=== PATIENT | female | born 1960 | race Caucasian/White ===

== ENCOUNTER 2017-04-04 16:28 | Inpatient (IN) | payer OTHER ==
[~2017-04-04] VITALS: Ht 162.6 cm; Wt 73.5 kg
[2017-04-05] MEDS ORDERED: MAG HYDROX/AL HYDROX/SIMETH 30 ML LIQUID UDC PO PRN (13:45)
[2017-04-05] MEDS ORDERED: ONDANSETRON 4 MG/2 ML VIAL IM PRN (13:45)
[2017-04-05] MEDS ORDERED: LORAZEPAM 2 MG/1 ML VIAL IM PRN (13:45)
[2017-04-05] MEDS ORDERED: LOPERAMIDE HCL 2 MG CAPSULE PO PRN ×2 (13:45)
[2017-04-05] MEDS ORDERED: ONDANSETRON ODT 4 MG TAB.RAPDIS SL PRN (13:45)
[2017-04-05] MEDS ORDERED: LORAZEPAM 1 MG TABLET PO PRN ×2 (13:45)
[2017-04-05] MEDS ORDERED: MIRALAX 17 GM POWD.PACK PO PRN (13:45)
[2017-04-05] MEDS ORDERED: diphenhydrAMINE 50 MG CAPSULE PO PRN (13:45)
[2017-04-05] MEDS ORDERED: ACETAMINOPHEN 325 MG TABLET PO PRN (13:45)
[2017-04-05] MEDS ORDERED: CLONIDINE HCL 0.1 MG TABLET PO PRN (13:45)
--- NOTE | 2017-04-05 14:15 | NUR ---
PRE-ADMISSION NOTE: 56 [facility]. Pt is alert and oriented X4. Color good, skin warm and dry. Respirations even and unlabored. Pt has allergy to PCN. Hx of A-FIB Denies PCP Vital Signs: B/P: 139/90 HR: 110 RR: 18 Pulse OX: 96% T: 98.2 Pt is 5 feet 4inches tall and weighs 165 pounds. Substance use: 2-3 bottles of wine per day X 25 years. Last drink last night and states "I drank too much"
[2017-04-05] MEDS ORDERED: THIAMINE HCL 200 MG/2 ML VIAL IM ONE (14:20)
[2017-04-05 14:23] VITALS: BP 139/90
[2017-04-05 14:40] LABS: *URINE HCG, QUAL NEGATIVE (NEGATIVE)
--- NOTE | 2017-04-05 14:45 | NUR ---
ADMISSION NOTE: 56 yo female presents to [facility] for supervised withdrawal from ETOH. Pt is alert and oriented X4. Color good, skin warm and dry. Respirations even and unlabored. Pt has allergy to PCN. Hx of A-FIB, anxiety and depression. Pt states was hospitalized in 2009 for her A-Fib. Denies PCP or Psychiatrist. Denies seizure history. Pt is 5 feet 4 inches tall and weighs 162 pounds. Skin intact. Initial CIWA 11. Pt noted with upper extremity tremors, crying and anxiety. Pt started on a 5 day Ativan taper by Dr. Higuera. Pt states has been to 2 other treatment facilities. One in 1995 and stayed sober for 1 year and the other March 2017 for 5 days and stayed sober for 1 week. Pt brought home medications. All reconciled and taken to pharmacy. Vital Signs: B/P: 139/90 HR: 110 RR: 18 Pulse OX: 96% T: 98.2 Substance use: 2-3 bottles of wine per day X 25 years Last drink 8-1-17 "way too much."
[2017-04-05 14:48] LABS: *AMPHETAMINE, URINE NEGATIVE (NEGATIVE); *BARBITURATE, URINE NEGATIVE (NEGATIVE); *CANNABINOID, URINE NEGATIVE (NEGATIVE); *COCCAINE, URINE NEGATIVE (NEGATIVE); *OPIATE, URINE NEGATIVE (NEGATIVE); *PHENCYCLIDINE SCREEN,URINE NEGATIVE (NEGATIVE)
[2017-04-05] MEDS: LORAZEPAM 1 MG TABLET PO SCH ×2 (14:53→20:39)
[2017-04-05] MEDS ORDERED: DILT120C51 PO (14:57)
[2017-04-05] MEDS ORDERED: FLUO40CA49 PO (14:58)
[2017-04-05] MEDS ORDERED: TRAZ-147 PO (14:59)
[2017-04-05] MEDS ORDERED: ASPI-605 PO (15:01)
[2017-04-05] MEDS ORDERED: DOXY40CP2 PO (15:10)
[2017-04-05] MEDS ORDERED: IBUP200C5 PO (15:12)
[2017-04-05] MEDS ORDERED: CALC-1008 PO (15:12)
[2017-04-05] MEDS ORDERED: ASCO-420 PO (15:13)
[2017-04-05] MEDS ORDERED: [UNRECOGNIZED DRUG - CODE] PO (15:16)
[2017-04-05] MEDS: FLUOXETINE HCL 20 MG CAPSULE PO SCH (16:14)
--- NOTE | 2017-04-05 16:40 | NUR ---
Pt states feels much improved after 2mg Ativan per taper.
[2017-04-05 17:01] VITALS: BP 135/89
[2017-04-05] MEDS: IBUPROFEN 400 MG TABLET PO PRN (17:51)
--- NOTE | 2017-04-05 17:54 | NUR ---
Pt noted to have CIWA 17. Ativan 2mg po prn given. Dr. Higuera notified. Also, c/o headache. Motrin 400mg po prn given.
--- NOTE | 2017-04-05 18:34 | NUR ---
Pt states feels improved after Ativan 2mg po prn. CIWA 8. Also states headache improved after Motrin prn.
--- NOTE | 2017-04-05 18:38 | NUR ---
END OF SHIFT NOTE: Report given to shift mgr nurse. 56 [facility]. Pt started on a 5 day Ativan taper. Pt is alert and oriented X4. Color good, skin warm and dry. Respirations even and unlabored. VSS. Pt has allergy to PCN. Hx of A-FIB, anxiety and depression. Last CIWA 17 @ 1750. Ativan 2mg po prn given. Dr. Higuera notified. Also, c/o headache. Motrin 400mg po prn given. Safety precautions observed. Call light within reach.
[2017-04-05 20:00] VITALS: BP 145/97
--- NOTE | 2017-04-05 20:00 | NUR ---
Start of Shift Pt is a 56 year old female admitted for ETOH dependence, placed on 5 day Ativan taper. Pt reported consuming 2-3 bottles of wine. PMH: A-fib, anxiety and depression. Pt reports allergies to PCN, fall/seizure precautions, regular diet and full code. Upon assessment, pt presents with anxiety, is in emotional distress, tremors visible, reports chills/aches throughout body, skin flushed/clammy, respirations even/unlabored, denies SOB/chest pain, medications due. Safety measures in place, call light within reach, side rails up x2, bed locked and low position. Will continue to monitor.
[2017-04-05 20:30] LABS: BASOPHILS # (AUTO) 0.1 K/uL (0.0-8.0); BASOPHILS % (AUTO) 0.7 % (0.0-2.0); EOSINOPHILS # (AUTO) 0.5 K/uL (0.0-0.7); EOSINOPHILS % (AUTO) 5.9 % (0.0-7.0); HEMATOCRIT 46.1 % (37-47); HEMOGLOBIN 15.4 G/DL (12.0-16.0); LYMPHOCYTES # (AUTO) 2.4 K/UL (0.8-4.8); LYMPHOCYTES % (AUTO) 29.8 % (20.5-51.5); MEAN CORPUSCULAR HEMOGLOBIN 32.2 UUG (27.0-31.0); MEAN CORPUSCULAR HGB CONC 34 g/dL (32.0-37.0); MEAN CORPUSCULAR VOLUME 96.1 FL (81.0-99.0); MONOCYTES % (AUTO) 12.3 % (0.0-11.0); NEUTROPHILS # (AUTO) 4.2 K/UL (1.8-8.9); NEUTROPHILS % (AUTO) 51.3 % (38.5-71.5); PLATELET COUNT (AUTO) 305 K/UL (150-450); RED BLOOD CELL COUNT(AUTO) 4.79 MIL/UL (4.2-5.4); WHITE BLOOD COUNT (AUTO) 8.2 K/UL (4.0-11.2)
[2017-04-05 20:36] LABS: ALANINE AMINOTRANSFERASE 42 U/L (14-59); ALKALINE PHOSPHATASE 59 U/L (50-136); AMYLASE 47 U/L (25-115); ASPARTATE AMINOTRANSFERASE 32 U/L (15-37); BILIRUBIN,TOTAL 0.7 mg/dL (0.2-1.0); CARBON DIOXIDE 33 mmol/L (21-32); CHLORIDE 101 mmol/L (98-107); CREATININE 0.9 mg/dL (0.6-1.3); GLUCOSE 108 mg/dL (74-106); LIPASE 183 U/L (73-393); MAGNESIUM 1.9 mg/dL (1.8-2.4); POTASSIUM 3.3 mmol/L (3.5-5.1); TOTAL PROTEIN, SERUM 6.7 g/dL (6.4-8.2); UREA NITROGEN, BLOOD 13 mg/dL (7-18)
[2017-04-05] MEDS: GABAPENTIN 300 MG CAPSULE PO SCH (20:39)
[2017-04-05] MEDS: TRAZODONE 100 MG TABLET PO SCH (20:39)
[2017-04-05 20:41] LABS: ETHANOL < 3 MG/DL (0-0)
[2017-04-05] MEDS ORDERED: POTASSIUM CHLORIDE 20 MEQ TAB.PRT.SR PO ONE (21:15)
--- NOTE | 2017-04-05 21:15 | NUR ---
Potassium Supplemented K 3.3 supplemented with K-Dur 40 MEQ. Safety measures in place. Will continue to monitor.
[2017-04-05] MEDS ORDERED: POTASSIUM CHLORIDE 20 MEQ TAB.PRT.SR ONE (21:37)
[2017-04-06] VITALS: BP 108/72
[2017-04-06 04:00] VITALS: BP 143/87
--- NOTE | 2017-04-06 04:00 | NUR ---
Vital Signs BP 143/87, pulse 67, resp 16, SpO2 97% room air, temp 98, no reports of pain CIWA deferred due to pt sleeping, to assess while pt is awake as ordered. Safety measures in place. Will continue to monitor
--- NOTE | 2017-04-06 07:00 | NUR ---
End of Shift Pt is a 56 year old female admitted for ETOH dependence, placed on 5 day Ativan taper. Pt reported consuming 2-3 bottles of wine. PMH: A-fib, anxiety and depression. Pt reports allergies to PCN, fall/seizure precautions, regular diet and full code. During shift, pt presented with anxiety, was in emotional distress, tremors visible, reports chills/aches throughout body, skin flushed/clammy scheduled taper medications administered, CIWA 9. K 3.3 supplement with K-Dur 40 MEQ. No other PRN medications administered. Pt slept for 10 hours, intake of 1180 ml PO, voids x3 and stool x0. Safety measures in place, call light within reach, side rails up x2, bed locked and low position. Endorsed to day shift nurse.
--- NOTE | 2017-04-06 07:25 | NUR ---
START OF SHIFT NOTE: Received report from date night caregiver nurse. Pt is a 56 year old female admitted 03-05-17 for ETOH dependence, placed on 5 day Ativan taper. Tolerating well. Pt is alert and oriented X4. Color good, skin warm and dry. Respirations even and unlabored. Resting in bed. Safety precautions observed. Call light within reach. Will continue to monitor.
[2017-04-06] MEDS: ASPIRIN 81 MG TAB.CHEW PO SCH (08:05)
[2017-04-06] MEDS: THIAMINE HCL 100 MG TABLET PO SCH (08:05)
[2017-04-06] MEDS: GABAPENTIN 300 MG CAPSULE PO SCH ×2 (08:05→20:33)
[2017-04-06] MEDS: MULTIVITAMINS,THERAPEUTIC TABLET PO SCH (08:05)
[2017-04-06] MEDS: FOLIC ACID 1 MG TABLET PO SCH (08:05)
[2017-04-06] MEDS: LORAZEPAM 1 MG TABLET PO SCH ×3 (08:05→20:33)
[2017-04-06] MEDS: DILTIAZEM HCL CD 120 MG CAP.SR.24H PO SCH (08:06)
[2017-04-06] MEDS: FLUOXETINE HCL 20 MG CAPSULE PO SCH (08:06)
[2017-04-06 08:30] VITALS: BP 133/79
[2017-04-06] MEDS ORDERED: TUBERCULIN,PURIF.PROT.DERIV. 5 TU/0.1 ML TEST ID ONE (09:00)
--- NOTE | 2017-04-06 09:30 | NUR ---
VSS CIWA 7 c/o fine upper extremity tremors and anxiety.
[2017-04-06 13:17] VITALS: BP 119/83
--- NOTE | 2017-04-06 15:00 | NUR ---
VSS CIWA 7 c/o fine upper extremity tremors and anxiety.
--- NOTE | 2017-04-06 17:19 | NUR ---
Therapist prompted client to attend daily group therapy sessions. Client stated that she would attend.
[2017-04-06 17:26] VITALS: BP 119/83
--- NOTE | 2017-04-06 18:38 | NUR ---
END OF SHIFT NOTE: Report given to fast food shift supervisor nurse. 56 [facility]. Pt started on a 5 day Ativan taper tolerating well. Pt is alert and oriented X4. Color good, skin warm and dry. Respirations even and unlabored. Vital signs have remained stable throughout shift. Last CIWA 7 @ 1500. Pt very emotional over "things I need to take care of." Safety precautions observed. Call light within reach.
--- NOTE | 2017-04-06 19:55 | NUR ---
START OF SHIFT Received report from day shift nurse. Pt is lying in bed watching TV. She is a 56 yo female admitted to [facility] on 04/05 for ETOH dependence. She is A&O and ambulatory. Allergic to PCNs, full code status, and on a regular diet. PMH of a-fib, anxiety, and depression. Upon admission she reported drinking 2-3 bottles of wine per day. Pt started a 5 day Ativan taper on 04/05. She reports anxiety, headache, and is observed with mild tremors and facial flushing. Taper due tonight. Fall precautions in place. Bed is down with call light in reach.
[2017-04-06 20:00] VITALS: BP 139/92
[2017-04-06] MEDS: IBUPROFEN 400 MG TABLET PO PRN (20:33)
[2017-04-06] MEDS: TRAZODONE 100 MG TABLET PO SCH (20:33)
--- NOTE | 2017-04-06 20:34 | NUR ---
PRN Motrin Pt c/o headache 12/11. PRN Motrin administered.
--- NOTE | 2017-04-06 21:34 | NUR ---
PRN Motrin reassessment PRN Motrin effective. Pt is lying in bed resting with eyes closed. Respirations even and unlabored. Safety measures in place.
[2017-04-07] VITALS: BP 126/86
--- NOTE | 2017-04-07 | NUR ---
0000 CIWA deferred CIWA ordered Q4HWA. Pt is lying in bed resting with eyes closed. Respirations even and unlabored. Vital signs obtained. Safety measures in place.
[2017-04-07 04:00] VITALS: BP 114/79
--- NOTE | 2017-04-07 04:00 | NUR ---
0400 CIWA deferred CIWA ordered Q4HWA. Pt is lying in bed resting with eyes closed. Respirations even and unlabored. Vital signs obtained. Safety measures in place.
[2017-04-07 07:06] LABS: CREATININE 0.8 mg/dL (0.6-1.3); MAGNESIUM 1.8 mg/dL (1.8-2.4); POTASSIUM 4.5 mmol/L (3.5-5.1)
--- NOTE | 2017-04-07 07:15 | NUR ---
Start of Shift Endorsement received from nightshift nurse. Pt is a 56 y/o female admitted for alcohol dependence. Pt has been placed on a 5 day Ativan taper. Pt is tolerating the taper and moderately withdrawing AEB CIWA 8 at 2100. Pt reports sleeping 9 hours. Pt received PRN Motrin. Pt reports feeling rested but anxious due wanting to make phone calls. Educated pt on the process of making phone calls and the person she'll need to talk to. VS WNL. full Code. . PT is alert and oriented x4. Pt is in STABLE condition at this time. Remains compliant with medication and diet regimen. All needs have been met, All safety measures in place per hospital policy. Bed in lowest position, side rails up x2, call-light within reach. Will continue to monitor
--- NOTE | 2017-04-07 07:20 | NUR ---
END OF SHIFT Report provided to day shift nurse. Pt is lying in bed watching TV. She is a 56 yo female admitted to [facility] on 04/05 for ETOH dependence. She is A&O and ambulatory. Allergic to PCNs, full code status, and on a regular diet. PMH of a-fib, anxiety, and depression. Upon admission she reported drinking 2-3 bottles of wine per day. Pt started a 5 day Ativan taper on 04/05. Pt is cooperative with treatment. PRN Motrin administered. Last CIWA was 8 before 2100 medications administered. She drank 680mL and slept for 9 hours. Fall precautions in place. Bed is down with call light in reach.
[2017-04-07 08:00] VITALS: BP 133/94
[2017-04-07] MEDS: LORAZEPAM 1 MG TABLET PO SCH ×2 (09:08→12:45)
[2017-04-07] MEDS: MULTIVITAMINS,THERAPEUTIC TABLET PO SCH (09:08)
[2017-04-07] MEDS: FLUOXETINE HCL 20 MG CAPSULE PO SCH (09:08)
[2017-04-07] MEDS: FOLIC ACID 1 MG TABLET PO SCH (09:08)
[2017-04-07] MEDS: DILTIAZEM HCL CD 120 MG CAP.SR.24H PO SCH (09:09)
[2017-04-07] MEDS: ASPIRIN 81 MG TAB.CHEW PO SCH (09:09)
[2017-04-07] MEDS: THIAMINE HCL 100 MG TABLET PO SCH (09:09)
[2017-04-07] MEDS: GABAPENTIN 300 MG CAPSULE PO SCH ×3 (09:09→21:46)
[2017-04-07 12:00] VITALS: BP 121/89
[2017-04-07 12:09] LABS: HEPATITIS B SURFACE AG Negative (Negative)
[2017-04-07 16:00] VITALS: BP 129/83
[2017-04-07] MEDS ORDERED: LORAZEPAM 1 MG TABLET PO SCH ×2 (17:00→21:00)
[2017-04-07] MEDS ORDERED: MAGNESIUM OXIDE 400 MG TABLET PO ONE (17:00)
--- NOTE | 2017-04-07 19:15 | NUR ---
START OF SHIFT NOTE : Pt is a 56 y/o female admitted for alcohol dependence. Pt has been placed on a 5 day Ativan taper. Pt is tolerating the taper good. Pt participated in groups and activities. PT presented with increased anxiety. Educated pt with deep breathing technique to help her relieve mild to moderate anxiety. Pt is in STABLE condition at this time. Remains compliant with medication and diet regimen. All needs have been met, All safety measures in place per hospital policy. Bed in lowest position, side rails up x2, call-light within reach. Will continue to monitor
--- NOTE | 2017-04-07 19:21 | NUR ---
End of Shift Endorsement given to nightshift nurse. Pt is a 56 y/o female admitted for alcohol dependence. Pt has been placed on a 5 day Ativan taper. Pt is tolerating the taper and moderately withdrawing AEB CIWA 11 at 1600. Pt participated in groups and activities. PT presented with increased anxiety and agitation due to wanting to make a phone call, pt became more calm after making the phone calls. Educated pt with deep breathing technique to help her relieve mild to moderate anxiety. Pt did not receive any PRN medications. Intake: 1600ml, Void x7, BM x1. VS WNL. full Code. PT is alert and oriented x4. Pt is in STABLE condition at this time. Remains compliant with medication and diet regimen. All needs have been met, All safety measures in place per hospital policy. Bed in lowest position, side rails up x2, call-light within reach. Will continue to monitor
[2017-04-07 20:00] VITALS: BP 143/92
[2017-04-07] MEDS: TRAZODONE 100 MG TABLET PO SCH (21:45)
--- NOTE | 2017-04-08 06:48 | NUR ---
END OF SHIFT NOTE : Pt is a 56 y/o female admitted for alcohol dependence. Pt has been placed on a 5 day Ativan taper. Pt is tolerating the taper good. Pt participated in groups and activities. PT presented with increased anxiety. Educated pt with deep breathing technique to help her relieve mild to moderate anxiety Pt remains compliant with the treatment plan. No PRNs were given during my shift. V/S remain WNL. RR=16, even and unlabored, lungs clear upon auscultation, abdomen soft and non- distended. Pt denies nausea, vomiting and diarrhea. LAST CIWA=3 at 0400 , INTAKE= 1000 ml, voided x 3, slept 8 hours. Safety measures in place : bed on lowest position with side rails x2 up for safety, call light within reach. Will continue to monitor closely and offer help.
--- NOTE | 2017-04-08 07:30 | NUR ---
Start of Shift Tool Grinding Machine Operator received report on 56 year old female admitted on 04/05/17 for ETOH detoxification. Pt has an allergy to Penicillin's. Eats a regular diet and is a full code. PMH includes A-fib, controlled, and anxiety and depression. No previous history of seizures noted. Pt currently on a 5 day Ativan taper and is tolerating well, last CIWA 3, per report. Pt slept 8 hours with no PRN medication administered. Tool Grinding Machine Operator encounters pt in her room, resting. Pt is tearful with a depressed mood and affect. Endorses taking depression medication, but states, " I doesn't work." Tool Grinding Machine Operator provided emotional support and comfort, pt denies any more concerns. Bed in low position, wheels locked, side rails up x2 and call light within reach.
[2017-04-08 08:05] VITALS: BP 143/97
[2017-04-08] MEDS: ASPIRIN 81 MG TAB.CHEW PO SCH (09:10)
[2017-04-08] MEDS: GABAPENTIN 300 MG CAPSULE PO SCH ×3 (09:10→21:27)
[2017-04-08] MEDS: THIAMINE HCL 100 MG TABLET PO SCH (09:10)
[2017-04-08] MEDS: DILTIAZEM HCL CD 120 MG CAP.SR.24H PO SCH (09:10)
[2017-04-08] MEDS: FOLIC ACID 1 MG TABLET PO SCH (09:10)
[2017-04-08] MEDS: FLUOXETINE HCL 20 MG CAPSULE PO SCH (09:10)
[2017-04-08] MEDS: MULTIVITAMINS,THERAPEUTIC TABLET PO SCH (09:10)
[2017-04-08] MEDS: LORAZEPAM 1 MG TABLET PO SCH ×3 (09:11→21:28)
[2017-04-08 12:45] VITALS: BP 139/92
[2017-04-08 16:53] VITALS: BP 148/88
--- NOTE | 2017-04-08 18:54 | NUR ---
End of Shift Mixer Driver provided report on 56 year old female admitted on 04/05/17 for ETOH detoxification, with no further comments, questions or concerns voiced. Pt has an allergy to Penicillin's. Eats a regular diet and is a full code. PMH includes A-fib, controlled, and anxiety and depression. No previous history of seizures noted. Pt currently on a 5 day Ativan taper and is tolerating well, last CIWA 6 recorded at 1600. Pt is calm, cooperative and A/O x4. Pt has a depressed mood and is labile, tearful at times. Pt is anxious and worried. Makes her needs known. Has remained isolative and withdrawn to self and room. Bed in low position, wheels locked, side rails up x2 and call light within reach.
[2017-04-08 20:00] VITALS: BP 146/79
[2017-04-08] MEDS: TRAZODONE 100 MG TABLET PO SCH (21:27)
[2017-04-08] MEDS: CLONIDINE HCL 0.1 MG TABLET PO SCH (21:28)
--- NOTE | 2017-04-09 06:51 | NUR ---
START OF SHIFT NOTE : Pt is a 56 y/o female admitted for alcohol dependence. Pt has been placed on a 5 day Ativan taper. Pt is tolerating the taper good. Pt participated in groups and activities. PT presented with increased anxiety. Educated pt with deep breathing technique to help her relieve mild to moderate anxiety. Pt is in STABLE condition at this time. Remains compliant with medication and diet regimen. No PRNs were given during my shift. V/S remain WNL. RR=16, even and unlabored, lungs clear upon auscultation, abdomen soft and non- distended. Pt denies nausea, vomiting and diarrhea. LAST CIWA=3 ,COWS=3 at 0400 , XWCMMD=2869 ml, voided x 3, slept 7 hours. Safety measures in place : bed on lowest position with side rails x2 up for safety, call light within reach. Will continue to monitor closely and offer help.
--- NOTE | 2017-04-09 08:10 | NUR ---
Start of Shift Ore Roaster received report on 56 year old female admitted on 04/05/17 for ETOH detoxification. Pt has an allergy to Penicillin's. Eats a regular diet and is a full code. PMH includes A-fib, controlled, and anxiety and depression. No previous history of seizures noted. Pt currently on a 5 day Ativan taper and is tolerating well, last CIWA 3, per report. Pt slept 7 hours with no PRN medication administered. Ore Roaster encounters pt in her room, resting. Pt has a depressed mood and congruent affect. Cooperative and A/O x4, able to make her needs known. Bed in low position, wheels locked, side rails up x2 and call light within reach.
[2017-04-09 08:33] VITALS: BP 150/102
[2017-04-09] MEDS: ASPIRIN 81 MG TAB.CHEW PO SCH (09:37)
[2017-04-09] MEDS: DILTIAZEM HCL CD 120 MG CAP.SR.24H PO SCH (09:37)
[2017-04-09] MEDS: GABAPENTIN 300 MG CAPSULE PO SCH ×3 (09:38→21:58)
[2017-04-09] MEDS: MULTIVITAMINS,THERAPEUTIC TABLET PO SCH (09:38)
[2017-04-09] MEDS: FOLIC ACID 1 MG TABLET PO SCH (09:38)
[2017-04-09] MEDS: CLONIDINE HCL 0.1 MG TABLET PO SCH ×3 (09:38→21:58)
[2017-04-09] MEDS: THIAMINE HCL 100 MG TABLET PO SCH (09:38)
[2017-04-09] MEDS: LORAZEPAM 1 MG TABLET PO SCH ×2 (09:38→21:59)
[2017-04-09] MEDS: FLUOXETINE HCL 20 MG CAPSULE PO SCH (10:37)
[2017-04-09 12:22] VITALS: BP 125/87
[2017-04-09 16:45] VITALS: BP 114/77
--- NOTE | 2017-04-09 18:52 | NUR ---
End of Shift Echo Vasc Tech provided report on 56 year old female admitted on 04/05/17 for ETOH detoxification, with no further comments, questions or concerns voiced. Pt has an allergy to Penicillin's. Eats a regular diet and is a full code. PMH includes A-fib, controlled, and anxiety and depression. No previous history of seizures noted. Pt currently on a 5 day Ativan taper and is tolerating well, last CIWA 3 recorded at 1600. Pt is calm, cooperative and A/O x4. Pt has a depressed mood and is labile, tearful at times. Pt is anxious and worried about the care of her dog. Makes her needs known. Has remained isolative and withdrawn to self and room. Bed in low position, wheels locked, side rails up x2 and call light within reach.
[2017-04-09 20:00] VITALS: BP 132/89
--- NOTE | 2017-04-09 20:00 | NUR ---
Start of Shift Note: Report received from day shift nurse. Pt is a 56 y/o female admitted on 04/05/2017 for medically-supervised withdrawal from ETOH. Pt reports drinking 2-3 bottles of wine daily for 25 years. Pt is on a 5-day Ativan taper. Pt received with last CIWA=3, and no PRN's were given during day shift. Pt is a full code. Pt reports allergy to PCN. Pt is on a regular diet. PMHx: A-fib, anxiety, depression. Pt received in room, and reports anxiety. Bed is in low position and locked, side rails up x2, call light within reach. Will continue to monitor.
[2017-04-09] MEDS: TRAZODONE 100 MG TABLET PO SCH (21:59)
[2017-04-10] VITALS: BP 93/54
--- NOTE | 2017-04-10 | NUR ---
CIWA Deferred: CIWA is deferred for sleep. V/S stable. All safety precautions are in place. Will continue to monitor. Addendum: 04/10/17 at 0259 by EMHDI CEJA RN Amended: Links added.
--- NOTE | 2017-04-10 04:00 | NUR ---
Vitals Refused, CIWA Deferred: Patient refuses 04:00 vital signs. Pt educated on risks and benefits but still refused. CIWA assessment is deferred for sleep. All safety precautions are in place. Will continue to monitor. Addendum: 04/10/17 at 0556 by MEHDI CEJA RN Amended: Links added.
--- NOTE | 2017-04-10 07:05 | NUR ---
End of Shift Note: Pt is a 56 y/o female admitted to [facility] on 04/05/2017 for medically-supervised withdrawal from ETOH. Pt reported a PMHx of A-fib, anxiety, and depression. Pt is a full code. Pt reports allergy to PCN. Pt is on a regular diet. Pt reported drinking 2-3 bottles of wine daily for 25 years, and was placed on a 5-day Ativan taper. Scheduled medication regime managed s/s of withdrawal this shift, and no PRN medications were necessary. Last CIWA=2 at 20:00. V/S stable throughout shift. Total fluid intake this shift: 600 ml; output: urine x 2 and BM x 0. Pt is currently in bed and slept 8 hours this shift. All needs have been attended and met. Pt endorsed to day shift nurse.
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
[2017-04-10 08:00] VITALS: BP 153/94
[2017-04-10] MEDS: FOLIC ACID 1 MG TABLET PO SCH (08:57)
[2017-04-10] MEDS: FLUOXETINE HCL 20 MG CAPSULE PO SCH (08:57)
[2017-04-10] MEDS: CLONIDINE HCL 0.1 MG TABLET PO SCH ×3 (08:58→21:26)
[2017-04-10] MEDS: MULTIVITAMINS,THERAPEUTIC TABLET PO SCH (08:58)
[2017-04-10] MEDS: THIAMINE HCL 100 MG TABLET PO SCH (08:58)
[2017-04-10] MEDS: ASPIRIN 81 MG TAB.CHEW PO SCH (08:58)
[2017-04-10] MEDS: GABAPENTIN 300 MG CAPSULE PO SCH ×3 (08:58→21:25)
[2017-04-10] MEDS: DILTIAZEM HCL CD 120 MG CAP.SR.24H PO SCH (08:58)
[2017-04-10] MEDS ORDERED: LORAZEPAM 1 MG TABLET PO SCH (09:00)
[2017-04-10 12:00] VITALS: BP 113/80
[2017-04-10] MEDS ORDERED: HYDROXYZINE PAMOATE 25 MG CAPSULE PO PRN (13:00)
[2017-04-10 16:00] VITALS: BP 118/81
[2017-04-10] MEDS ORDERED: DIPH50CA37 PO (16:13)
[2017-04-10] MEDS ORDERED: DILT120C62 PO (16:13)
[2017-04-10] MEDS ORDERED: CLON0.1T14 PO (16:13)
[2017-04-10] MEDS ORDERED: HYDR-3895 PO (16:13)
[2017-04-10] MEDS ORDERED: GABA-534 PO ×2 (16:13)
[2017-04-10] MEDS ORDERED: FLUO-120 PO (16:13)
[2017-04-10] MEDS ORDERED: IBUP-1953 PO (16:13)
--- NOTE | 2017-04-10 19:21 | NUR ---
END OF SHIFT NOTE 56 y/o female admitted on 04/05/2017 for medically-supervised withdrawal from ETOH. Hx of A-fib, anxiety, and depression. Pt is a full code. Allergy to PCN. Regular diet. Pt reported drinking 2-3 bottles of wine daily for 25 years, and was placed on a 5-day Ativan taper, on last day of taper. Tolerating Ativan taper with CIWA scores of 6 at 0800; 7 at 1200; and 5 at 1600. No PRN medications required for pain or anxiety or gastric symptoms. Pt assisted by case management for update on status of her pet and appears more relaxed. Good appetite and fluid intake. Pt has no complaints at this time, pt states that she is comfortable. SBAR report given to oncoming nurse. All needs addressed at this time.
[2017-04-10 20:00] VITALS: BP 131/82
--- NOTE | 2017-04-10 20:00 | NUR ---
Start of Shift Note: Report received from day shift nurse. Pt is a 56F admitted on 04/05/2017 for medically-supervised withdrawal from ETOH. Pt reports drinking 2-3 bottles of wine daily x 25 years. Pt has completed a 5-day Ativan taper and is to discharge tomorrow. Pt received with last CIWA=5, and no PRN's were given during day shift. Pt reports allergy to PCN. Pt is a full code. Pt is on a regular diet. PMHx: A-fib, anxiety, depression. Pt received in room and reports anxiety; pt noted with fine tremor. Pt verbalizes readiness for discharge. Bed is in low position and locked, side rails up x2, call light within reach. Will continue to monitor.
[2017-04-10] MEDS: TRAZODONE 100 MG TABLET PO SCH (21:24)
--- NOTE | 2017-04-10 21:26 | NUR ---
PRN Vistaril: Pt c/o anxiety. Administered PRN Vistaril as ordered. Will continue to monitor.
--- NOTE | 2017-04-10 22:30 | NUR ---
PRN Reassessment: Pt is in bed with eyes closed. respirations are even and unlabored. No s/s of acute distress noted. PRN Vistaril effective. All safety precautions are in place. Will continue to monitor.
--- NOTE | 2017-04-11 | NUR ---
V/S Refused, CIWA Deferred: Pt refuses 00:00 vital signs. Pt educated on risks and benefits but still refused. CIWA is deferred for sleep. All safety precautions are in place. Will continue to monitor. Addendum: 04/11/17 at 0305 by MEHDI CEJA RN Amended: Links added.
--- NOTE | 2017-04-11 04:00 | NUR ---
Vital Signs Refused, CIWA Deferred: Patient refuses 04:00 vital signs assessment. Patient educated on risks and benefits but still refused. CIWA is deferred for sleep. Addendum: 04/11/17 at 0514 by MEHDI CEJA RN Amended: Links added.
--- NOTE | 2017-04-11 06:54 | NUR ---
End of Shift Note: Pt is a 56F admitted to [facility] on 04/05/2017 for medically-supervised withdrawal from ETOH. Pt reported a PMHx of A-fib, anxiety, and depression. Pt reports allergy to PCN. Pt is a full code. Pt is on a regular diet. Pt reported drinking 2-3 bottles of wine daily x 25 years, was placed on a 5-day Ativan taper, which was completed and pt is to discharge today. Scheduled medication regime managed s/s of withdrawal this shift, in addition to PRN Vistaril for anxiety. Last CIWA=3 at 20:00. V/S stable throughout shift. Total fluid intake this shift: 1491 ml; output: urine x 2 and BM x 0. Pt is currently in bed and slept 7 hours this shift. All needs have been attended and met. Pt endorsed to day shift nurse.
--- NOTE | 2017-04-11 07:10 | NUR ---
Start of shift note Pt was admitted for ETOH dependence. Pt is scheduled to discharge today, pt states that she feels ready for discharge. Pt is currently ambulating around he room, packing her belongings for discharge. Pt has no complaints at this time. Will continue to monitor pt. All needs addressed at this time.
[2017-04-11 08:00] VITALS: BP 128/82
[2017-04-11] MEDS: GABAPENTIN 300 MG CAPSULE PO SCH (08:40)
[2017-04-11] MEDS: ASPIRIN 81 MG TAB.CHEW PO SCH (08:40)
[2017-04-11] MEDS: FOLIC ACID 1 MG TABLET PO SCH (08:40)
[2017-04-11] MEDS: MULTIVITAMINS,THERAPEUTIC TABLET PO SCH (08:40)
[2017-04-11] MEDS: THIAMINE HCL 100 MG TABLET PO SCH (08:40)
[2017-04-11] MEDS: FLUOXETINE HCL 20 MG CAPSULE PO SCH (08:41)
[2017-04-11] MEDS: CLONIDINE HCL 0.1 MG TABLET PO SCH (08:41)
[2017-04-11 08:42] VITALS: BP 129/89
[2017-04-11] MEDS: DILTIAZEM HCL CD 120 MG CAP.SR.24H PO SCH (08:42)
--- NOTE | 2017-04-11 10:13 | NUR ---
Discharge note Pt was admitted for ETOH dependence. Pt has successfully completed an ativan taper. Pt has a recent CIWA of 3, VS are WNL, pt states that she feels ready for discharge, denies SI/HI. Verbalized her understanding of the discharge instructions. All belongings, medications and prescriptions given to pt. Pt ID band removed, pt ambulated off of unit with ENTERPRISE BUSINESS ARCHITECT, left facility via [facility].
== END 2017-04-11 10:13 | disposition other institution (70) | DRG 895 ==
LOC: SRC 04-05 13:00
PROVIDERS: ADMIT Internal Medicine; ATTEND Internal Medicine
PROC: HZ2ZZZZ Detoxification Services for Substance Abuse Treatment (ICD-10-PCS; principal; 2017-04-05)
PROC: HZ41ZZZ Group Counseling for Substance Abuse Treatment, Behavioral (ICD-10-PCS; 2017-04-06)
PROC: HZ31ZZZ Individual Counseling for Substance Abuse Treatment, Behavioral (ICD-10-PCS; 2017-04-08)
DX: F10.230 Alcohol dependence with withdrawal, uncomplicated (principal); E87.3 Alkalosis; E83.42 Hypomagnesemia; I48.0 Paroxysmal atrial fibrillation; I15.9 Secondary hypertension, unspecified; E87.6 Hypokalemia; E86.0 Dehydration; Y90.9 Presence of alcohol in blood, level not specified; Z98.84 Bariatric surgery status; G47.00 Insomnia, unspecified; Z81.1 Family history of alcohol abuse and dependence; Z81.8 Family history of other mental and behavioral disorders; Z59.0 Homelessness; R73.9 Hyperglycemia, unspecified
CPT/HCPCS: 36415; 70030-TC; 80307; 83690; 83735; 84703; 85025; 86580; 86592; 86705; 86803; 87340; 87806; G0480; J3411